=== PATIENT | male | born 1970 | race Hispanic/Latino ===

== ENCOUNTER 2022-04-01 22:02 | Emergency (ER) | payer OTHER ==
[2022-04-01] MEDS ORDERED: KETOROLAC 30 MG/ML INJ ONE (22:43)
[2022-04-01 23:09] LABS: Absolute Lymphocytes (CBC) 1.5 K/uL (0.7-4.9); Hematocrit 43.7 % (39.6-49.0); Lymphocytes % 30.9 % (15.3-44.8); MCV 88.7 fL (80-100); MPV 10.1 fL (7.6-11.3); RBC Red Blood Cell Count 4.92 M/uL (4.33-5.43)
--- NOTE | 2022-04-01 23:12 | RAD REPORT ---
EXAM DESCRIPTION: RAD - Chest Single View - 04/01/2022 11:03 pm CLINICAL HISTORY: CHEST PAIN COMPARISON: None FINDINGS: Lines: None. Lungs: No evidence of edema or pneumonia. Pleural: No significant pleural effusions or pneumothorax. Cardiac: The heart size is within normal limits. Mediastinum: Within normal limits. Bones: No acute fractures. Other: None IMPRESSION: No acute cardiopulmonary disease.
[2022-04-01 23:28] LABS: Albumin 3.6 g/dL (3.4-5.0); Bilirubin Total 0.3 mg/dL (0.2-1.0); Potassium 3.7 mmol/L (3.5-5.1); Protein, Total 7.8 g/dL (6.4-8.2); Troponin High Sensitivity 4.5 pg/mL (<58.9)
[2022-04-01 23:45] LABS: SARS-COV-2 RT PCR NEGATIVE (NEGATIVE)
--- NOTE | 2022-04-02 00:04 | EDPHYS ---
Physician Documentation [facility] Name: Willian Garvin Age: 51 yrs Sex: Male : 1970 Arrival Date: 04/01/2022 Time: 22:11 Bed 29 Private MD: ED Physician Hammad Florentino HPI: 04/01 22:46 This 51 yrs old Male presents to ER via Ambulatory with complaints of Fever, rt Chest Pain > 30 y/o. 22:46 Onset: The symptoms/episode began/occurred 5 day(s) ago. Modifying factors: there are rt no obvious modifying factors. Associated signs and symptoms: Pertinent positives: cough, Pertinent negatives: abdominal pain, altered mental status. Patient presents to the ED with cough, congestion, sore throat, fever, right-sided chest pain, worse with coughing that started on Sunday. The patient denies other acute complaints at this time, other aggravating or alleviating factors. Symptoms are moderate in severity. Historical: - Allergies: 22:16 No Known Allergies; kb3 - Home Meds: 22:16 loratadine 10 mg oral tab 1 tab once daily [Active]; omeprazole 20 mg Oral cpDR 1 cap kb3 once daily [Active]; - PMHx: 22:16 GERD; Allergies; kb3 - PSHx: 22:16 Appendectomy; kb3 - Immunization history:: Adult Immunizations up to date, Client reports having NOT received the Covid vaccine. Last tetanus immunization: unknown. - Social history:: Smoking status: Patient denies any tobacco usage or history of. - Family history:: not pertinent. ROS: 22:46 Eyes: Negative for injury, pain, redness, and discharge, Abdomen/GI: Negative for rt abdominal pain, nausea, vomiting, diarrhea, and constipation, Back: Negative for injury and pain, MS/Extremity: Negative for injury and deformity, Skin: Negative for injury, rash, and discoloration, Neuro: Negative for headache, weakness, numbness, tingling, and seizure, Psych: Negative for depression, anxiety, suicide ideation, homicidal ideation, and hallucinations. 22:46 Constitutional: Positive for fatigue, fever. 22:46 ENT: Positive for rhinorrhea, sore throat. 22:46 Cardiovascular: Positive for chest pain, Negative for edema. 22:46 Respiratory: Positive for cough, Negative for shortness of breath. Exam: 22:46 Constitutional: This is a well developed, well nourished patient who is awake, alert, rt and in no acute distress. Head/Face: Normocephalic, atraumatic. Eyes: Pupils equal round and reactive to light, extra-ocular motions intact. Lids and lashes normal. Conjunctiva and sclera are non-icteric and not injected. Cornea within normal limits. Periorbital areas with no swelling, redness, or edema. ENT: Nares patent. No nasal discharge, no septal abnormalities noted. Tympanic membranes are normal and external auditory canals are clear. Oropharynx with no redness, swelling, or masses, exudates, or evidence of obstruction, uvula midline. Mucous membranes moist. Neck: Trachea midline, no thyromegaly or masses palpated, and no cervical lymphadenopathy. Supple, full range of motion without nuchal rigidity, or vertebral point tenderness. No Meningismus. Chest/axilla: Normal chest wall appearance and motion. Nontender with no deformity. No lesions are appreciated. Cardiovascular: Regular rate and rhythm with a normal S1 and S2. No gallops, murmurs, or rubs. Normal PMI, no JVD. No pulse deficits. Respiratory: Lungs have equal breath sounds bilaterally, clear to auscultation and percussion. No rales, rhonchi or wheezes noted. No increased work of breathing, no retractions or nasal flaring. Abdomen/GI: Soft, non-tender, with normal bowel sounds. No distension or tympany. No guarding or rebound. No evidence of tenderness throughout. Skin: Warm, dry with normal turgor. Normal color with no rashes, no lesions, and no evidence of cellulitis. MS/ Extremity: Pulses equal, no cyanosis. Neurovascular intact. Full, normal range of motion. Neuro: Awake and alert, GCS 15, oriented to person, place, time, and situation. Cranial nerves II-XII grossly intact. Motor strength 5/5 in all extremities. Sensory grossly intact. Cerebellar exam normal. Normal gait. Psych: Awake, alert, with orientation to person, place and time. Behavior, mood, and affect are within normal limits. Vital Signs: 22:14 BP 120 / 81; Pulse 83; Resp 20; Temp 99.4; Pulse Ox 98% ; Weight 83.46 kg; Height 5 ft. kb3 10 in. (177.80 cm); Pain 7/10; 22:14 Body Mass Index 26.40 (83.46 kg, 177.80 cm) kb3 MDM: 22:27 Patient medically screened. rt 04/02 00:05 Differential diagnosis: viral Infection, bacterial infection, pneumonia. Data reviewed: rt vital signs, nurses notes, lab test result(s), EKG, radiologic studies. ED course: Patient presents to the ED with cough, congestion, fevers, chest wall pain. He has no evidence of ischemia on the work-up. Chest x-ray is clear of pneumonia. He is found of influenza A. He is stable for outpatient care, given chronicity of symptoms, 1 set of enzymes is sufficient to rule out acute coronary syndrome, do not suspect pulmonary embolus. Discussed conservative home care with the patient, return precautions discussed.. 04/01 22:36 Order name: CBC with Diff; Complete Time: 23:13 rt 04/01 22:36 Order name: CMP; Complete Time: 23:57 rt 04/01 22:36 Order name: Troponin High Sensitivity; Complete Time: 23:57 rt 04/01 22:36 Order name: Chest Single View XRAY; Complete Time: 23:13 rt 04/01 22:36 Order name: COVID-19/FLU A+B; Complete Time: 23:57 rt Administered Medications: 04/01 23:01 Drug: Ketorolac 15 mg Route: IM; Site: Other; Disposition Summary: 04/02/22 00:03 Discharge Ordered Location: Home rt Problem: new rt Symptoms: have improved rt Condition: Stable rt Diagnosis - Influenza due to identified novel influenza A virus rt Followup: rt - With: Private Physician - When: 2 - 3 days - Reason: Discharge Instructions: - Discharge Summary Sheet rt - Influenza, Adult, [id number] rt Forms: - Medication Reconciliation Form rt - Thank You Letter rt - Antibiotic Education rt - Prescription Opioid Use rt Signatures: Dispatcher [employer] Guillermina Martinez, RN RHIANNON Radha Nance RN RN kb3 Hammad Florentino MD MD rt
--- NOTE | 2022-04-02 00:04 | ER ---
Nurse's Notes [facility] Name: Willian Garvin Age: 51 yrs Sex: Male : 1970 Arrival Date: 04/01/2022 Time: 22:11 Bed 29 Private MD: Diagnosis: Influenza due to identified novel influenza A virus Presentation: 04/01 22:14 Chief complaint: Patient states: Cough, congestion, fever, body aches, right-sided kb3 chest pain x2 days and nausea and diarrhea since today. Coronavirus screen: Vaccine status: Patient reports being unvaccinated. Client denies travel out of the [place] in the last 14 days. Ebola Screen: Patient negative for fever greater than or equal to 101.5 degrees Fahrenheit, and additional compatible Ebola Virus Disease symptoms Patient denies exposure to infectious person. Patient denies travel to an Ebola-affected area in the 21 days before illness onset. Initial Sepsis Screen: Does the patient meet any 2 criteria? No. Patient's initial sepsis screen is negative. Does the patient have a suspected source of infection? No. Patient's initial sepsis screen is negative. Risk Assessment: Do you want to hurt yourself or someone else? Patient reports no desire to harm self or others. Onset of symptoms was March 29, 2022. 22:14 Method Of Arrival: Ambulatory kb3 22:14 Acuity: JAMEY 4 kb3 Triage Assessment: 22:16 General: Appears in no apparent distress. Behavior is calm, cooperative. Pain: kb3 Complains of pain in anterior aspect of right upper chest and right breast Pain does not radiate. Pain currently is 5 out of 10 on a pain scale. Quality of pain is described as burning, pressure, Pain began 1 day ago. Cardiovascular: Reports chest pain, nausea. Historical: - Allergies: 22:16 No Known Allergies; kb3 - Home Meds: 22:16 loratadine 10 mg oral tab 1 tab once daily [Active]; omeprazole 20 mg Oral cpDR 1 cap kb3 once daily [Active]; - PMHx: 22:16 GERD; Allergies; kb3 - PSHx: 22:16 Appendectomy; kb3 - Immunization history:: Adult Immunizations up to date, Client reports having NOT received the Covid vaccine. Last tetanus immunization: unknown. - Social history:: Smoking status: Patient denies any tobacco usage or history of. - Family history:: not pertinent. Screenin:20 Abuse screen: Denies threats or abuse. Denies injuries from another. Nutritional hb screening: No deficits noted. Tuberculosis screening: No symptoms or risk factors identified. Fall Risk None identified. Assessment: 22:50 General: Appears in no apparent distress. Behavior is calm, cooperative. Neuro: Level hb of Consciousness is awake, alert, obeys commands, Oriented to person, place, time, situation. Cardiovascular: Patient's skin is warm and dry. Respiratory: Respiratory effort is even, unlabored, Respiratory pattern is regular, symmetrical. GI: No signs and/or symptoms were reported involving the gastrointestinal system. : No signs and/or symptoms were reported regarding the genitourinary system. EENT: No signs and/or symptoms were reported regarding the EENT system. Derm: Skin is pink, warm \T\ dry. Musculoskeletal: No signs and/or symptoms reported regarding the musculoskeletal system. 04/02 00:00 Reassessment: Patient appears in no apparent distress at this time. Patient and/or jb4 family updated on plan of care and expected duration. Pain level reassessed. Patient is alert, oriented x 3, equal unlabored respirations, skin warm/dry/pink. Vital Signs: 04/01 22:14 BP 120 / 81; Pulse 83; Resp 20; Temp 99.4; Pulse Ox 98% ; Weight 83.46 kg; Height 5 ft. kb3 10 in. (177.80 cm); Pain 7/10; 22:14 Body Mass Index 26.40 (83.46 kg, 177.80 cm) kb3 ED Course: 22:11 Patient arrived in ED. bp1 22:16 Triage completed. kb3 22:16 Arm band placed on left wrist. kb3 22:26 Hammad Florentino MD is Attending Physician. rt 22:48 Inserted saline lock: 20 gauge in left antecubital area, using aseptic technique. Blood hb collected. 23:04 Chest Single View XRAY In Process Unspecified. EDMS 04/02 00:18 No provider procedures requiring assistance completed. IV discontinued, intact, jb4 bleeding controlled, No redness/swelling at site. Pressure dressing applied. Patient maintains SpO2 saturation greater than 95% on room air. 00:19 Patient has correct armband on for positive identification. Bed in low position. Call jb4 light in reach. Side rails up X 1. Client placed on continuous cardiac and pulse oximetry monitoring. NIBP monitoring applied. Administered Medications: 04/01 23:01 Drug: Ketorolac 15 mg Route: IM; Site: Other; Medication: 04/02 00:19 VIS not applicable for this client. jb4 Outcome: 00:03 Discharge ordered by MD. rt 00:18 Discharged to home ambulatory, with family. jb4 00:18 Condition: stable 00:18 Discharge instructions given to patient, Instructed on discharge instructions, follow up and referral plans. Demonstrated understanding of instructions, follow-up care. 00:19 Patient left the ED. jb4 Signatures: Dispatcher [employer] EDMS Guillermina Ricardo RN RN Andreas Avalos RN RN jb4 Isidra Barton Kelly, RN RN [id number] Hammad Florentino MD MD rt Corrections: (The following items were deleted from the chart) 04/01 22:18 22:14 Chief complaint: Patient states: Cough, congestion, fever, body aches, chest pain kb3 x2 days and nausea and diarrhea since today kb3
[2022-04-02 00:37] VITALS: BP 120/81; TEMP 99.4; O2SAT 98
== END 2022-04-02 00:19 | disposition home or self-care (01) ==
LOC: ER 22:02
DX: J10.1 Influenza due to other identified influenza virus with other respiratory manifestations (principal); K21.9 Gastro-esophageal reflux disease without esophagitis; Z20.822 Contact with and (suspected) exposure to COVID-19
CPT/HCPCS: 85025; 36415; 84484; 80053; 0240U; 71045; 96372; 99284